=== PATIENT | male | born 2000 | race Caucasian/White ===

== ENCOUNTER 2020-02-23 15:05 | Emergency (ER) | payer MEDICAID ==
[~2020-02-23] VITALS: Ht 180.3 cm; Wt 68.2 kg
--- NOTE | 2020-02-23 17:28 | NUR ---
BACK FROM CT
[2020-02-23 17:58] VITALS: BP 113/70
== END 2020-02-23 17:59 | disposition home or self-care (01) ==
LOC: ER 15:06
DX: R51 Headache (principal)
CPT/HCPCS: 70450; 99284